=== PATIENT | male | born 1975 | race Hispanic/Latino ===

== ENCOUNTER 2021-10-07 20:27 | Observation (INO) | payer BC ==
[~2021-10-07] VITALS: Ht 182.9 cm; Wt 108.2 kg
[2021-10-08] VITALS (13 sets, daily range): BP systolic 106–152; BP diastolic 65–97
[2021-10-08] MEDS ORDERED: ACETAMINOPHEN 325 MG TAB PO PRN ×2 (01:00)
[2021-10-08] MEDS ORDERED: LACTULOSE 20 GM/30 ML UDCUP PO PRN (01:00)
[2021-10-08] MEDS ORDERED: 0.9%NACL 1000ML 1,000 ML IV ONE (01:00)
[2021-10-08] MEDS ORDERED: DIPHENHYDRAMINE HCL 25 MG CAPSULE PO PRN (01:00)
[2021-10-08] MEDS ORDERED: ZOLPIDEM TARTRATE 5 MG TAB PO PRN (01:00)
[2021-10-08] MEDS ORDERED: MAG/ALUM/SIMETH 30 ML UDCUP PO PRN (01:00)
[2021-10-08] MEDS ORDERED: HYDRALAZINE 20MG/ML VIAL IV PRN (01:00)
[2021-10-08] MEDS ORDERED: ONDANSETRON 4MG INJ IV PRN (01:00)
[2021-10-08] MEDS ORDERED: HYDROCODONE/ACETAMINOPHEN 5/325 MG TAB PO PRN (01:00)
[2021-10-08] MEDS ORDERED: HYDROMORPHONE 1 MG INJ IV PRN (01:00)
[2021-10-08] MEDS: AMOX/CLAV 875/125MG TAB PO SCH ×2 (01:30→13:19)
[2021-10-08] MEDS: 0.9%NACL 1000ML 1,000 ML IV SCH ×2 (02:25→10:48)
[2021-10-08 04:16] LABS: BASOPHILS % (AUTO) 0.4 % (0.0-5.0); EOSINOPHILS % (AUTO) 1.5 % (0.0-8.0); HEMATOCRIT 40.7 % (42-54); LYMPHOCYTES % (AUTO) 25.5 % (21.0-51.0); MEAN CORPUSCULAR HEMOGLOBIN 30.8 pg (27.0-33.0); MEAN CORPUSCULAR HGB CONC 34.2 g/dL (32.0-36.0); MEAN CORPUSCULAR VOLUME 90.2 fL (79-99); MONOCYTES % (AUTO) 10.7 % (3.0-13.0); NEUTROPHILS % (AUTO) 61.6 % (40.0-77.0); PLATELET COUNT (AUTO) 173 K/uL (130-400); RED BLOOD CELL COUNT(AUTO) 4.51 MIL/uL (4.50-6.20); RED CELL DISTRIBUTION WIDTH 14.4 % (11.0-15.5); WHITE BLOOD COUNT (AUTO) 7.1 K/uL (4.8-10.8)
[2021-10-08 04:25] LABS: POTASSIUM 3.5 mmol/L (3.5-5.1)
[2021-10-08] MEDS ORDERED: KETOROLAC 15MG/ML VIAL (15MG/ML) IM PRN (08:30)
[2021-10-08] MEDS ORDERED: KETOROLAC 15MG/ML VIAL (15MG/ML) IV PRN (14:30)
== END 2021-10-08 17:45 | disposition home or self-care (01) ==
LOC: INTOOBSV 10-08 00:17 → 2AH 10-08 00:17
PROVIDERS: ADMIT Internal Medicine; ATTEND Internal Medicine
DX: I95.1 Orthostatic hypotension (principal); G44.89 Other headache syndrome; Z79.899 Other long term (current) drug therapy
CPT/HCPCS: 96374; 96372; 96361; 80048; 85025; 36415; G0378 ×5; G0379; J1170; J7030 ×3; J1885